=== PATIENT | female | born 1945 | race Caucasian/White ===

== ENCOUNTER 2023-02-11 13:06 | Emergency (ER) | payer MEDICARE, BC ==
[~2023-02-11] VITALS: Ht 160 cm; Wt 46.3 kg
[2023-02-11] MEDS ORDERED: FOLIC ACID (13:37)
[2023-02-11] MEDS ORDERED: PROP160C35 PO (13:37)
[2023-02-11] MEDS ORDERED: CLONAZEPAM (13:37)
--- NOTE | 2023-02-11 13:37 | NUR ---
PT DOES NOT REMEMBER NAMES AND DOSES OF HER HOME MEDICATION.
--- NOTE | 2023-02-11 14:56 | NUR ---
Patient is resting comfortably on gurney with eyes closed, for discharge at this time, pending family/neighbor to come to ER and steel pickler the patient.
--- NOTE | 2023-02-11 15:02 | NUR ---
Patient discharged to home by Dr Willams in stable condition with steady gait while using her own walker. Written and verbal after care instructions given to patient. Patient verbalized understanding and compliance of instructions. Stressed follow up with primary doctor or return to ER for worsening s/s.
[2023-02-11 15:05] VITALS: BP 141/84
== END 2023-02-11 15:06 | disposition home or self-care (01) ==
LOC: ER 13:06
DX: S01.01XA Laceration without foreign body of scalp, initial encounter (principal); Z90.49 Acquired absence of other specified parts of digestive tract; Z90.710 Acquired absence of both cervix and uterus; Z79.899 Other long term (current) drug therapy; W18.39XA Other fall on same level, initial encounter; Y93.89 Activity, other specified; Y92.89 Other specified places as the place of occurrence of the external cause; Y99.8 Other external cause status
CPT/HCPCS: 70450; 72125; A4663

== ENCOUNTER → 2023-02-22 | Emergency (ER) | payer MEDICARE, BC ==
[~2023-02-22] VITALS: Ht 160 cm; Wt 46.7 kg
[~2023-02-22] MED LIST: CLONAZEPAM; FOLIC ACID; PROP160C35 PO
--- NOTE | 2023-02-22 19:44 | NUR ---
Dr Luo into removed matty.
--- NOTE | 2023-02-22 19:54 | NUR ---
Patient discharged to home in stable condition. Written and verbal after care instructions given. Patient verbalizes understanding of instructions. Stressed follow up or return to ER for worsening s/s.
== END | disposition home or self-care (01) ==
LOC: ER 19:19
DX: S01.01XD Laceration without foreign body of scalp, subsequent encounter (principal); Z90.49 Acquired absence of other specified parts of digestive tract; Z79.899 Other long term (current) drug therapy; X58.XXXD Exposure to other specified factors, subsequent encounter
CPT/HCPCS: A4663

== ENCOUNTER 2023-07-06 08:22 | Emergency (ER) | payer MEDICARE, BC ==
[~2023-07-06] VITALS: Ht 154.9 cm; Wt 45.4 kg
[2023-07-06] MEDS ORDERED: methylPREDNISolone ACETATE 40 MG VIAL IM ONE (09:00)
[2023-07-06] MEDS ORDERED: METH4TAB3 PO (09:10)
[2023-07-06] MEDS ORDERED: predniSONE 20 MG TABLET PO ONE (09:15)
[2023-07-06] MEDS ORDERED: predniSONE 20 MG TABLET ONE (09:18)
[2023-07-06 09:27] VITALS: BP 151/69; O2SAT 98
== END 2023-07-06 09:28 | disposition home or self-care (01) ==
LOC: ER 08:22
DX: T78.40XA Allergy, unspecified, initial encounter (principal); Z90.49 Acquired absence of other specified parts of digestive tract; Z79.899 Other long term (current) drug therapy; Y92.89 Other specified places as the place of occurrence of the external cause
CPT/HCPCS: 99283; J7512; A4606; A4663